=== PATIENT | female | born 1965 | race African-American/Black ===

== ENCOUNTER 2016-08-04 01:21 | Emergency (ER) | payer BC ==
[~2016-08-04 01:21] MED LIST: COUMADIN7.5 MG PO; LOVENOX100 MG/1 M SQ; MECLIZINE HCL25 MG PO; NORCO 5-325 TA1 EACH PO; PROBIOTIC1 EAC1 PO; [UNRECOGNIZED DRUG - OTHER] PO
== END 2016-08-04 03:38 | disposition home or self-care (01) ==
LOC: ER 01:21
DX: R03.0 Elevated blood-pressure reading, without diagnosis of hypertension (principal); J45.909 Unspecified asthma, uncomplicated; E11.9 Type 2 diabetes mellitus without complications; D64.9 Anemia, unspecified; Z87.442 Personal history of urinary calculi; Z79.01 Long term (current) use of anticoagulants; Z88.8 Allergy status to other drugs, medicaments and biological substances